=== PATIENT | male | born 1950 | race Caucasian/White ===

== ENCOUNTER 2024-08-26 05:08 | Day surgery (SDC) | payer MEDICARE | END 2024-08-26 07:29 | disposition home or self-care (01) | LOC: DS 05:08 → MED 05:24 → UNDOADMIN 05:24 → UNDODISIN 07:26 → DS 07:29 | PROVIDERS: ATTEND Orthopaedic Surgery | DX: S83.004A Unspecified dislocation of right patella, initial encounter (principal); Z53.8 Procedure and treatment not carried out for other reasons; X58.XXXA Exposure to other specified factors, initial encounter | CPT/HCPCS: G0378 ==

== ENCOUNTER 2024-10-14 05:14 | Day surgery (SDC) | payer MEDICARE, OTHER ==
[2024-10-14] MEDS ORDERED: FENTANYL PF 250MCG/5ML AMPUL ONE (07:00)
[2024-10-14] MEDS ORDERED: ROCURONIUM BROMIDE 50 MG/5 ML ONE (07:00)
[2024-10-14] MEDS ORDERED: LABETALOL 20 MG/4 ML VIAL ONE (07:42)
[2024-10-14] MEDS ORDERED: ROPIVACAINE HCL 0.5% 5 MG/ML 30ML VIAL ONE (08:02)
[2024-10-14] MEDS ORDERED: ANCEF 1 GM/50 ML D5W IV ONE (08:30)
[2024-10-14] MEDS ORDERED: FENTANYL PF 100MCG/2ML AMPUL ONE (08:54)
[2024-10-14] MEDS ORDERED: HYDROCODONE/APAP 5/325MG TABLET ONE (10:34)
== END 2024-10-14 11:50 | disposition home or self-care (01) ==
LOC: DS 05:14
PROVIDERS: ATTEND Orthopaedic Surgery
DX: S83.094A Other dislocation of right patella, initial encounter (principal); M23.51 Chronic instability of knee, right knee; I10 Essential (primary) hypertension; Z85.46 Personal history of malignant neoplasm of prostate; Z72.89 Other problems related to lifestyle; Z79.899 Other long term (current) drug therapy; Z88.8 Allergy status to other drugs, medicaments and biological substances; Z96.653 Presence of artificial knee joint, bilateral; Z82.49 Family history of ischemic heart disease and other diseases of the circulatory system; Z80.9 Family history of malignant neoplasm, unspecified; Z83.3 Family history of diabetes mellitus; Y83.8 Other surgical procedures as the cause of abnormal reaction of the patient, or of later complication, without mention of misadventure at the time of the procedure; Y93.89 Activity, other specified; Y92.89 Other specified places as the place of occurrence of the external cause; Y99.8 Other external cause status
CPT/HCPCS: 27425; 82962 ×2; 97116; J1885; J0690 ×2; J2704; J3010 ×2; J3490 ×3; C1713; J7060; J2795; A6253; A4217